=== PATIENT | male | born 2000 | race Caucasian/White ===

== ENCOUNTER 2018-04-24 21:40 | Emergency (ER) | payer OTHER ==
[~2018-04-24] VITALS: Ht 167.6 cm; Wt 75.9 kg
[2018-04-24 22:01] VITALS: Ht 167.6 cm; Wt 75.9 kg
[2018-04-24 23:00] VITALS: BP 148/72
== END 2018-04-24 23:00 | disposition home or self-care (01) ==
LOC: ED 21:40
DX: H60.92 Unspecified otitis externa, left ear (principal); H61.22 Impacted cerumen, left ear; J45.909 Unspecified asthma, uncomplicated